=== PATIENT | male | born 1950 | race Caucasian/White ===

== ENCOUNTER → 2020-12-25 | Outpatient (CLI) | payer OTHER ==
[~2020-12-25] MED LIST: LIPITOR 20 MG T20 M1 PO; MELOXICAM15 MG PO; METFORMIN HCL500 M3 PO; PROSCAR 5MG TABL5 MG PO; ZESTRIL2.5 MG PO
== END ==
LOC: M.PC 09:24
PROVIDERS: ATTEND Physical Medicine & Rehabilitation
DX: M51.36 Other intervertebral disc degeneration, lumbar region (principal); M47.816 Spondylosis without myelopathy or radiculopathy, lumbar region; M48.061 Spinal stenosis, lumbar region without neurogenic claudication; M79.604 Pain in right leg